=== PATIENT | female | born 1975 | race Caucasian/White ===

== ENCOUNTER 2017-09-13 00:12 | Emergency (ER) | END 2017-09-13 04:11 | disposition home or self-care (01) ==

== ENCOUNTER 2018-03-25 15:39 | Emergency (ER) | payer OTHER ==
[~2018-03-25] VITALS: Ht 165.1 cm; Wt 78.5 kg
[~2018-03-25 15:39] MED LIST: CEPH-443 PO; NAPR-688 PO; ONDA4TAB11 PO
[2018-03-25 15:44] VITALS: BP 138/79; PULSE 87; RESP 20; Ht 165.1 cm; Wt 78.5 kg
[2018-03-25] MEDS ORDERED: SULF1TAB31 PO (18:09)
[2018-03-25] MEDS ORDERED: AMOX1TAB10 PO (18:09)
[2018-03-25] MEDS ORDERED: GENT5DRO28 RIGHT EYE (18:09)
--- NOTE | 2018-03-25 18:24 | ERD ---
ER Documentation Chief Complaint Chief Complaint Smplains of right eye pain x 3 days HPI 42-year-old female presents with some redness of the right eye discomfort for the last 3 days. Started on the upper lid. She saw her primary doctor who was not in the office. Another doctor recommended a referral to a specialist. Referral is pending. Over the last 2 days the redness and swelling is gotten worse and spread to the lower lid. She denies any significant visual changes. She denies any abnormal eye movements. He has mild pain. She denies contact lens use. ROS All systems reviewed and are negative except as per history of present illness. Medications Home Meds Active Scripts Gentamicin Sulfate* (Gentamicin Sulfate* Ophth) 0.3% - 5 Ml Drops, 1 DROP RIGHT EYE Q4 for 7 Days, EA Prov:LUC SINGH MD 03/25/18 Amoxicillin/Potassium Clav (Amox-Clav 875-125 mg Tablet) 875-125 mg Tab, 1 TAB PO BID for 7 Days, #14 TAB Prov:LUC SINGH MD 03/25/18 Sulfamethoxazole/Trimethoprim* (Bactrim Ds* Tablet) 1 Each Tablet, 1 TAB PO BID for 7 Days, #14 TAB Prov:LUC SINGH MD 03/25/18 Ondansetron (Zofran Odt) 4 Mg Tab.rapdis, 4 MG PO Q6 PRN for NAUSEA AND/OR VOMITING, #10 Prov:KATIUSKA BARRAZA DO 09/13/17 Naproxen* (Naproxen*) 500 Mg Tablet, 500 MG PO BID PRN for PAIN, #20 TAB Prov:KATIUSKA BARRAZA DO 09/13/17 Cephalexin* (Keflex*) 500 Mg Capsule, 500 MG PO QID for 5 Days, CAP Prov:KATIUSKA BARRAZA DO 09/13/17 Allergies Allergies: Coded Allergies: No Known Allergy (Unverified , 09/13/17) PMhx/Soc Hx Respiratory Disorders: Yes (ASTHMA) Hx Cardiac Disorders: Yes (HTN) Hx Miscellaneous Medical Probl: Yes (ANEMIA, SYNCOPE) Hx Alcohol Use: No Hx Substance Use: No Hx Tobacco Use: No FmHx Family History: No diabetes, No coronary disease, No other Physical Exam Vitals Vital Signs Date Temp Pulse Resp B/P (MAP) Pulse Ox O2 O2 Flow FiO2 Time Delivery Rate 03/25/18 98.6 87 20 138/79 100 15:44 (98) Physical Exam Const: No acute distress Head: Atraumatic Eyes: Normal Conjunctiva. Right scleral redness. Eyes Chet and extraocular movements intact. Swelling upper and lower lid with some redness and small pustules. No periorbital swelling which is significant. No facial erythema or induration. Visual acuity shows no significant acute abnormalities. ENT: Normal External Ears, Nose and Mouth. Neck: Full range of motion. No meningismus. Resp: Clear to auscultation bilaterally Cardio: Regular rate and rhythm, no murmurs Abd: Soft, non tender, non distended. Normal bowel sounds Skin: No petechiae or rashes Back: No midline or flank tenderness Ext: No cyanosis, or edema Neur: Awake and alert Psych: Normal Mood and Affect Results 24 hrs Current Medications Medications Dose Sig/Radha Start Time Status Last (Trade) Ordered Route PRN Stop Time Admin Dose Reason Admin 1 tab ONCE ONCE 03/25/18 Trimethoprim/ PO 18:30 03/25/18 18:31 Sulfamethoxaz ole (Bactrim (Ds)) Cephalexin 500 mg ONCE ONCE 03/25/18 DC (Keflex) PO 18:30 03/25/18 18:30 875 mg ONCE ONCE 03/25/18 Amoxicillin/ PO 18:30 Clavulanate 03/25/18 18:31 Potassium (Augmentin) Procedures/MDM Patient presents with what appears to be an upper and lower right thigh with some redness and swelling. She will be treated with Bactrim and Keflex for skin infection as well as gentamicin drops and warm compresses and recommended primary care follow-up and ophthalmology resident process. She should return for visual changes, worsening pain, fevers, facial swelling, new worsening symptoms. Current signs or symptoms do not suggest orbital cellulitis, acute glaucoma, retinal artery occlusion, optic neuritis, retinal detachment, additional eye emergencies. Departure Diagnosis: Primary Impression: Hordeolum Hordeolum type: unspecified type Laterality: right Eyelid: unspecified eyelid Qualified Codes: H00.013 - Hordeolum externum right eye, unspecified eyelid Condition: Stable Patient Instructions: Conjunctivitis Caused by Infection, Sty Additional Instructions: Warm compresses at home. Recheck with specialist as scheduled or in process or with primary doctor. Recheck otherwise for new or worsening symptoms. LUC SINGH MD Mar 25, 2018 18:24
[2018-03-25] MEDS ORDERED: IBUPROFEN 600 MG TAB PO ONE (18:30)
[2018-03-25] MEDS ORDERED: AMOXICILLIN/CLAV 875 MG TAB PO ONE (18:30)
[2018-03-25] MEDS ORDERED: TRIMETHOPRIM/SULFAMETHOX (DS) TAB PO ONE (18:30)
[2018-03-25] MEDS ORDERED: CEPHALEXIN 500 MG CAP PO ONE (18:30)
== END 2018-03-25 19:01 | disposition home or self-care (01) ==
LOC: FTE 15:39
DX: H00.013 Hordeolum externum right eye, unspecified eyelid (principal); I10 Essential (primary) hypertension; J45.909 Unspecified asthma, uncomplicated
CPT/HCPCS: Z7502; Z7610; 99283

== ENCOUNTER 2018-03-28 19:12 | Emergency (ER) | payer OTHER ==
[~2018-03-28] VITALS: Ht 157.5 cm; Wt 76.7 kg
[~2018-03-28 19:12] MED LIST changes: +AMOX1TAB10 PO; +GENT5DRO28 RIGHT EYE; +SULF1TAB31 PO
[2018-03-28 19:17] VITALS: BP 139/76; PULSE 73; RESP 16; Ht 157.5 cm; Wt 76.7 kg
--- NOTE | 2018-03-28 20:52 | ERD ---
ER Documentation Chief Complaint Chief Complaint R eyelid infection getting worse HPI This is a 42-year-old female who presents emergency department with complaints of right upper eyelid swelling and infection that is getting worse. Patient was seen here last 03/25/2017 for the same reason and was seen by ED provider, was prescribed gentamicin, Augmentin, Bactrim. Patient also stated that she was seen by her doctor of dental medicine today and scheduled to see an geophysical prospector in 2 days. There is no visual field loss. LMP: Unknown. Denies headache, head injury, loss of consciousness, dizziness, neck pain, neck stiffness, throat pain, difficulty swallowing, difficulty breathing lying flat, shoulder pain, chest pain, back pain, abdominal pain, nausea, vomiting, constipation, diarrhea, urinary symptoms, or possibility being , loss of bowel and bladder control, trauma, injury, falls, difficulty walking due to pain, numbness or tingling sensation, calf pain, recent travel, recent major surgery in the last 3 weeks, calf pain, recent long travel, recent exposure to any illness, fever, chills, seizures. Past medical history: Denies. Surgical history: Denies. Social: Denies smoking, use of alcoholic beverages, use of illegal drugs. ROS All systems reviewed and are negative except as per history of present illness. Medications Home Meds Active Scripts Ibuprofen* (Motrin*) 800 Mg Tab, 800 MG PO Q6H PRN for PAIN AND OR ELEVATED TEMP, #30 TAB Prov:MARIVEL CRAMER 03/28/18 Gentamicin Sulfate* (Gentamicin Sulfate* Ophth) 0.3% - 5 Ml Drops, 1 DROP RIGHT EYE Q4 for 7 Days, EA Prov:LUC SINGH MD 03/25/18 Amoxicillin/Potassium Clav (Amox-Clav 875-125 mg Tablet) 875-125 mg Tab, 1 TAB PO BID for 7 Days, #14 TAB Prov:LUC SINGH MD 03/25/18 Sulfamethoxazole/Trimethoprim* (Bactrim Ds* Tablet) 1 Each Tablet, 1 TAB PO BID for 7 Days, #14 TAB Prov:LUC SINGH MD 03/25/18 Ondansetron (Zofran Odt) 4 Mg Tab.rapdis, 4 MG PO Q6 PRN for NAUSEA AND/OR VOMITING, #10 Prov:KATIUSKA BARRAZA DO 09/13/17 Naproxen* (Naproxen*) 500 Mg Tablet, 500 MG PO BID PRN for PAIN, #20 TAB Prov:KATIUSKA BARRAZA DO 09/13/17 Cephalexin* (Keflex*) 500 Mg Capsule, 500 MG PO QID for 5 Days, CAP Prov:KATIUSKA BARRAZA DO 09/13/17 Allergies Allergies: Coded Allergies: No Known Allergy (Unverified , 09/13/17) PMhx/Soc Hx Respiratory Disorders: Yes (ASTHMA) Hx Cardiac Disorders: Yes (HTN) Hx Miscellaneous Medical Probl: Yes (ANEMIA, SYNCOPE) Hx Alcohol Use: No Hx Substance Use: No Hx Tobacco Use: No Physical Exam Vitals Vital Signs Date Temp Pulse Resp B/P (MAP) Pulse Ox O2 O2 Flow FiO2 Time Delivery Rate 03/28/18 98.3 73 16 139/76 100 19:17 (97) Physical Exam Const: No acute distress Head: Atraumatic Eyes: Has good eye movement. Right upper eyelid is more swollen than the right lower eyelid. No visual field loss. Left eye: Unremarkable. No periorbital edema. There is no signs of periorbital cellulitis. ENT: Normal External Ears, Nose and Mouth. Neck: Full range of motion. No meningismus. Resp: Clear to auscultation bilaterally Cardio: Regular rate and rhythm, no murmurs Abd: Soft, non tender, non distended. Normal bowel sounds Skin: No petechiae or rashes Back: No midline or flank tenderness Ext: No cyanosis, or edema Neur: Awake and alert. No neurological deficit. Psych: Normal Mood and Affect Procedures/MDM Diagnostic tests: Clinical exam. Treatment: Not applicable. Re-evaluation: Appears comfortable while waiting in the waiting area. Differential diagnosis I have low suspicion for supraclinoid artery aneurysm, orbital cellulitis, periorbital cellulitis, sepsis, blindness. Final diagnosis: Stye. Blepharitis. Hordeolum. Prescription: Continue taking Bactrim and Augmentin plus gentamicin. Follow-up with PCP in the next 24-48 hours. Follow-up with geophysical prospector in the next 3-4 days. Come back here in the emergency department for any new symptoms or any worsening symptoms. All questions and concerns were answered. Patient and family members verbalized understanding and agreed with plan of care. Hemodynamically stable on discharge. Departure Diagnosis: Primary Impression: Stye external Additional Impressions: Hordeolum externum (stye) Blepharitis Condition: Stable Additional Instructions: Follow-up with PCP in the next 24-48 hours. Follow-up with geophysical prospector in the next 3-4 days. Come back here in the emergency department for any new symptoms or any worsening symptoms. MARIVEL CRAMER Mar 28, 2018 20:52
[2018-03-28] MEDS ORDERED: IBUP800T48 PO (20:54)
== END 2018-03-28 21:11 | disposition home or self-care (01) ==
LOC: FTE 19:12
DX: H00.011 Hordeolum externum right upper eyelid (principal); H01.001 Unspecified blepharitis right upper eyelid; J45.909 Unspecified asthma, uncomplicated; I10 Essential (primary) hypertension
CPT/HCPCS: 99282